=== PATIENT | male | born 1930 | race Caucasian/White ===

== ENCOUNTER 2019-08-14 08:56 | Emergency (ER) | payer OTHER ==
[~2019-08-14] VITALS: Ht 175.3 cm; Wt 70.0 kg
[~2019-08-14 08:56] MED LIST: AMLO-150 PO; NICO-485 TD
--- NOTE | 2019-08-14 09:10 | NUR ---
PT BIB [facility] FROM [facility] FOR NAUSEA X2 EPISODES AND HYPOTENSION. UPON ARRIVAL, PT IS NORMOTENSIVE AND DENIES SYMPTOMS EXCEPT FOR SOME LOOSE STOOLS. PT IS DNR, DNI. PT PLACED ON MONITORS, VSS. PT IS A&OX4. EKG COMPLETED. DIRECTOR OF TRAINING, PT GIVEN 4MG OF ZOFRAN AND NS 250ML BOLUS. PT AWAITING ERMD ASSESSMENT.
[2019-08-14 09:47] LABS: MEAN CORPUSCULAR HEMOGLOBIN 29.4 pg (27.5-34.5); MEAN CORPUSCULAR HGB CONC 32.8 g/dL (33.2-36.2); MEAN CORPUSCULAR VOLUME 89.7 fL (81-97); MEAN PLATELET VOLUME 8.2 fL (7.4-10.4); PLATELET COUNT 183 x10^3/uL (130-400); RED BLOOD COUNT 5.03 x10^6/uL (4.38-5.82); RED CELL DISTRIBUTION WIDTH 14.6 % (9.4-14.8)
[2019-08-14 09:48] LABS: MD YES
--- NOTE | 2019-08-14 10:04 | NUR ---
PT TO IMAGING.
[2019-08-14 10:18] LABS: <PLATELET ESTIMATE> ADEQUATE; <PLT MORPHOLOGY> NORMAL PLT MORPH; <RBC MORPHOLOGY> NORMAL; BAND#(MANUAL) 0.08 x10^3/uL; BANDS%(MANUAL) 1 % (0-7); LYMPH#(MANUAL) 0.98 x10^3/uL (1-3.4); LYMPHS% (MANUAL) 12 % (22-44); METAMYELOCYTES# (MANUAL) 0.08 x10^3/uL (0-0); METAMYELOCYTES% (MANUAL) 1 % (0-1); MONOS#(MANUAL) 1.48 x10^3/uL (0.3-2.7); MONOS% (MANUAL) 18 % (2-9); SEG#(MANUAL) 5.58 x10^3/uL (1.8-6.8); SEGS% (MANUAL) 68 % (42-75)
[2019-08-14 10:22] LABS: ALANINE AMINOTRANSFERASE 39 U/L (12-78); ALBUMIN 3.4 g/dL (3.4-5.0); ALKALINE PHOSPHATASE 107 U/L (45-117); ANION GAP 7 mmol/L (5-15); BILIRUBIN,TOTAL 0.7 mg/dL (0.2-1.0); CALCIUM 8.4 mg/dL (8.5-10.1); CHLORIDE 110 mmol/L (98-107); CREATININE 2.91 mg/dL (0.7-1.3); TOTAL PROTEIN 7.7 g/dL (6.4-8.2)
--- NOTE | 2019-08-14 10:42 | NUR ---
PT BACK FROM IMAGING, REMAINS ON MONITORS, VSS. PT REPOSITIONED IN BED FOR COMFORT. AWAITING ALL RESULTS. PT UNABLE TO URINATE CURRENTLY. CONT TO MONITOR.
--- NOTE | 2019-08-14 11:34 | NUR ---
PT GIVEN WATER TO DRINK PER ER PA-C REQUEST.
--- NOTE | 2019-08-14 12:26 | NUR ---
BLADDER SCAN AND UA CATH DONE PER ORDERS. BLADDER SCAN SHOWS APPROX 220ML. WITH CATH, APPROX 250ML URINE DRAINED, ER PA-C AWARE. PT NOW AWAITING US. REMAINS ON MONITORS, VSS. CONT TO MONITOR.
--- NOTE | 2019-08-14 12:34 | NUR ---
US AT BEDSIDE.
[2019-08-14 13:01] LABS: MICROSCOPIC INDICATED
--- NOTE | 2019-08-14 13:54 | NUR ---
[facility], VERBAL REPORT GIVEN TO LOU BOX. WILL CALL BACK WHEN ETA IS KNOWN. PT RESTING IN BED, MEAL TRAY ORDERED. CONT TO MONITOR.
--- NOTE | 2019-08-14 14:42 | NUR ---
[facility] CALLED, SPOKE WITH LOU BOX, OK TO SEND PT BACK. PT D/C'D WITH [facility]. IV D/C'D. PT HAS ALL OWN BELONGINGS UPON D/C.
[2019-08-14 14:44] VITALS: BP 115/70
== END 2019-08-14 14:46 | disposition home or self-care (01) ==
LOC: ED 09:20
DX: N18.9 Chronic kidney disease, unspecified (principal); R11.2 Nausea with vomiting, unspecified; R94.31 Abnormal electrocardiogram [ECG] [EKG]; J44.9 Chronic obstructive pulmonary disease, unspecified; F17.200 Nicotine dependence, unspecified, uncomplicated
CPT/HCPCS: 36415; 74022; 76770; 80053; 81001; 83690; 85025; 87086; 93005; 99285